=== PATIENT | female | born 1990 | race Caucasian/White ===

== ENCOUNTER 2021-04-11 11:58 | Emergency (ER) | payer BC ==
[2021-04-11 13:00] VITALS: PULSE 50
[2021-04-11] MEDS ORDERED: Sodium Chloride 0.9% 2.5 ML Syringe FLUSH PRN (13:22)
[2021-04-11] MEDS ORDERED: Sodium Chloride 0.9% 10 ML Syringe FLUSH PRN (13:22)
[2021-04-11] MEDS ORDERED: Sodium Chloride 0.9% 1,000 ML IV ONE (13:32)
[2021-04-11] MEDS ORDERED: Ondansetron 4 MG/2 ML SDV IVPUSH ONE (13:32)
[2021-04-11 14:00] LABS: BLOOD UREA NITROGEN,BUN 13 mg/dL (7.0-18.0); CARBON DIOXIDE,CO2 23.6 mmol/L (21.0-32.0); CHLORIDE,CL 106 mmol/L (98-107); GLUCOSE RANDOM 85 mg/dL (74-106); LIPASE 88 U/L (73-393); POTASSIUM,K 3.9 mmol/L (3.5-5.1); SODIUM,NA 139 mmol/L (136-145)
[2021-04-11] MEDS ORDERED: HYDROmorphone 1 MG/ML Syringe IVPUSH ONE (14:20)
[2021-04-11] MEDS ORDERED: Ketorolac 30 MG/ML SDV IVPUSH ONE (14:21)
--- NOTE | 2021-04-11 14:29 | US ---
INDICATION: Right upper quadrant pain, vomiting TECHNIQUE: Multiple grayscale sonographic images of the right upper quadrant the abdomen. COMPARISON: None FINDINGS: Liver: Normal parenchymal echotexture. No suspicious lesions. Common bile duct: Normal caliber measuring up to 2 mm. Gallbladder: Contains a 1.4 cm shadowing mobile stone. No wall thickening or pericholecystic fluid. Pancreas: Unremarkable visualized proximal pancreas. The distal pancreas is obscured. Right kidney: Measures 11 cm in length. Normal cortical thickness and parenchymal echotexture. No hydronephrosis. IMPRESSION: Cholelithiasis without evidence of cholecystitis. Otherwise unremarkable right upper quadrant. Dictated by Quinn Pate MD @ 04/11/2021 2:27:[address] Quinn Pate @ Apr 11 2021 2:27PM
--- NOTE | 2021-04-11 15:03 | EDM.PDOC ---
ED HPI GENERAL MEDICAL PROBLEM - General Chief Complaint: Abdominal Pain Stated Complaint: GALLBLADDER Time Seen by Provider: 04/11/21 12:01 Source of Information: Reports: Patient History Limitations: Reports: No Limitations - History of Present Illness INITIAL COMMENTS - FREE TEXT/NARRATIVE: HISTORY AND PHYSICAL: History of present illness: Patient is a 30-year-old female, history of prior symptomatic cholelithiasis, who presents emergency room today with concern of worsening right upper quadrant pain that has been ongoing for multiple months but worsening over the past s everal days. Patient states that she only gets pain and discomfort if she tries to eat and states that she has had gallbladder issues for quite some time but has "ignored "getting it removed. Patient states that she has also been told that she has gallstones and needs her gallbladder removed. Patient states that she has been dealing with the symptoms for quite some time and states that generally she would only get the symptoms when eating fatty foods to she has changed her diet over the past several months which has been helping. Patient states, however, progressively whenever she eats, she gets sharp right upper quadrant pain that radiates to the back and states that it does improve after some time but over the past 2 days has been more constant. Patient states that she feels hungry but every time she eats the pain returns so she talked with Dr. Mullins, general surgery, who instructed her to come to the ED for evaluation. Patient states she has not taken anything today for her symptoms. Patient states she has a history of bipolar disorder but denies any other health history. Patient denies fever, chills, chest pain, shortness of breath, or cough. Denies headache, neck stiff ness, change in vision, syncope, or near syncope. Denies vomiting, diarrhea, constipation, or dysuria. Has not noted any blood in urine or stool. Review of systems: As per history of present illness and below otherwise all systems reviewed and negative. Past medical history: As per history of present illness and as reviewed below otherwise noncontributory. Surgical history: As per history of present illness and as reviewed below otherwise noncontributory. Social history: See social history for further information Family history: As per history of present illness and as reviewed below otherwise noncontributory. Physical exam: General: Patient is alert, oriented, and in no acute distress. Patient sitting comfortably on exam table. Vitals stable and reviewed by me. HEENT: Atraumatic, normocephalic, pupils equal and reactive bilaterally, negative for conjunctival pallor or scleral icterus, mucous membranes moist, TMs normal bilaterally, throat clear, neck supple, nontender, trachea midline. No drooling or trismus noted. No meningeal signs. No hot potato voice noted. Lungs: Clear to auscultation, breath sounds equal bilaterally, chest nontender. Heart: S1S2, regular rate and rhythm without overt murmur Abdomen: Soft, nondistended, moderate RUQ tenderness without guarding, negative polk/rebound. Negative for masses or hepatosplenomegaly. Negative for costovertebral tenderness. Pelvis: Stable nontender. Genitourinary: Deferred. Rectal: Deferred. Skin: Intact, warm, dry. No lesions or rashes noted. Extremities: Atraumatic, negative for cords or calf pain. Neurovascular unremarkable. Neuro: Awake, alert, oriented. Cranial nerves II through XII unremarkable. Cerebellum unremarkable. Motor and sensory unremarkable throughout. Exam nonfocal. Notes: Patient is a 30-year-old female, history of prior cholelithiasis, who presents emergency room today with concern of right upper quadrant pain that has been ongoing for multiple months, worsening over the past several days. Upon arrival to the ED, patient is vitally stable and well-appearing on exam but does have right upper quadrant tenderness on exam. Will obtain basic lab work and obtain right upper quadrant ultrasound and reassess patient. CBC unremarkable. CMP mild derangements unremarkable. Lipase within normal limits. hCG is negative. Right upper quadrant ultrasound shows cholelithiasis without evidence of cholecystitis. Otherwise unremarkable right upper quadrant. Patient has personally been in contact today with general surgeon as she knows her personally, Dr. Mullins. Dr. Mullins in ED who has reviewed patients US image and labwork and has personally informed me she has established an appointment tomorrow at 1pm with patient in her clinic with plan to remove her gallbladder later this week/early next week. Upon reevaluation of patient, she has improvement of her pain and discomfort today with therapeutics given the emergency room. Strict return precautions thoroughly discussed with patient. Discussed importance for follow-up with Dr. Drake tomorrow as scheduled and her primary care provider. Voices understanding and is agreeable to plan of care. Denies any further questi ons or concerns at this time. Diagnostics: CBC, CMP, UA, lipase, right upper quadrant ultrasound Therapeutics: Normal saline, Zofran, Toradol, Dilaudid Prescription: [place] 5/325 (#10 tabs), Zofran Impression: Symptomatic cholelithiasis Plan: 1. Take medication as prescribed. Caution when using this medication as it does cause drowsiness and sedation. Do not operate any heavy equipment or machinery while taking this medication. 2. You can also alternate ibuprofen and Tylenol as directed for pain and discomfort. 3. Follow-up with Dr. Mullins, general surgery, tomorrow as scheduled at 1 PM at her clinic. The clinic information has been provided above for you for your reference. 3. Return to the ED as needed and as discussed. Definitive disposition and diagnosis as appropriate pending reevaluation and review of above. Left Upper Abdominal Pain Score (Numeric/FACES): 4 - Related Data Allergies Allergy/AdvReac Type Severity Reaction Status Date / Time No Known Allergies Allergy Verified 08/22/18 07:42 Home Meds: Home Meds Hydrocodone/Acetaminophen [HYDROcodone-Acetaminophen 5-325 MG] 1 each PO Q6H PRN #10 tab 04/11/21 [Rx] Ondansetron [Zofran ODT] 4 mg PO Q6H PRN #8 tab.dis 04/11/21 [Rx] Past Medical History HEENT History: Reports: None Cardiovascular History: Reports: None Respiratory History: Reports: None Gastrointestinal History: Reports: None Genitourinary History: Reports: None DRUGLESS DOCTOR History: Reports: None Musculoskeletal History: Reports: None Neurological History: Reports: None Psychiatric History: Reports: Bipolar Endocrine/Metabolic History: Reports: None Hematologic History: Reports: None Immunologic History: Reports: None Oncologic (Cancer) History: Reports: None Dermatologic History: Reports: None - Infectious Disease History Infectious Disease History: Reports: None - Past Surgical History Head Surgeries/Procedures: Reports: None HEENT Surgical History: Reports: None Cardiovascular Surgical History: Reports: None GI Surgical History: Reports: None Female Surgical History: Reports: None Endocrine Surgical History: Reports: None Neurological Surgical History: Reports: None Oncologic Surgical History: Reports: None Dermatological Surgical History: Reports: None Social & Family History - Family History Family Medical History: No Pertinent Family History HEENT: Reports: None Cardiac: Reports: None Respiratory: Reports: None GI: Reports: None : Reports: None OBGYN: Reports: None Musculoskeletal: Reports: None Neurological: Reports: None Psychiatric: Reports: None Endocrine/Metabolic: Reports: None Hematologic: Reports: None Immunologic: Reports: None Dermatologic: Reports: None Oncologic: Reports: None - Caffeine Use Caffeine Use: Reports: Energy Drinks - Recreational Drug Use Recreational Drug Use: No ED ROS GENERAL - Review of Systems Review Of Systems: Comprehensive ROS is negative, except as noted in HPI. ED EXAM, GENERAL - Physical Exam Exam: See Below (see dictation) Course - Vital Signs Last Recorded V/S: Last Vital Signs Temp 97.2 F 04/11/21 12:50 Pulse 50 L 04/11/21 15:16 Resp 17 04/11/21 15:16 BP 120/70 04/11/21 15:16 Pulse Ox 98 04/11/21 15:16 - Orders/Labs/Meds Orders: Active Orders 24 hr Category Date Time Status UA RFX RALF AND CULT IF INDIC [URIN] Stat Lab 04/11/21 13:22 Ordered Saline Lock Insert [OM.PC] Stat Oth 04/11/21 13:22 Ordered Labs: Laboratory Tests 04/11/21 04/11/21 04/11/21 Range/Units 12:54 12:54 12:54 WBC 8.96 (4.0-11.0) K/uL RBC 4.37 (4.30-5.90) M/uL Hgb 13.7 (12.0-16.0) g/dL Hct 39.6 (36.0-46.0) % MCV 90.6 (80.0-98.0) fL MCH 31.4 (27.0-32.0) pg MCHC 34.6 (31.0-37.0) g/dL RDW Std Deviation 44.4 (28.0-62.0) fl RDW Coeff of Shawn 14 (11.0-15.0) % Plt Count 209 (150-400) K/uL MPV 10.90 (7.40-12.00) fL Neut % (Auto) 57.1 (48.0-80.0) % Lymph % (Auto) 34.3 (16.0-40.0) % [place] % (Auto) 7.5 (0.0-15.0) % Eos % (Auto) 1.0 (0.0-7.0) % Baso % (Auto) 0.1 (0.0-1.5) % Neut # (Auto) 5.1 (1.4-5.7) K/uL Lymph # (Auto) 3.1 H (0.6-2.4) K/uL [place] # (Auto) 0.7 (0.0-0.8) K/uL Eos # (Auto) 0.1 (0.0-0.7) K/uL Baso # (Auto) 0.0 (0.0-0.1) K/uL Nucleated RBC % 0.0 /100WBC Nucleated RBCs # 0 K/uL Sodium 139 (136-145) mmol/L Potassium 3.9 (3.5-5.1) mmol/L Chloride 106 (98-107) mmol/L Carbon Dioxide 23.6 (21.0-32.0) mmol/L BUN 13 (7.0-18.0) mg/dL Creatinine 0.8 (0.6-1.0) mg/dL Est Cr Clr Drug Dosing 85.83 mL/min Estimated GFR (MDRD) > 60.0 ml/min Glucose 85 (74-106) mg/dL Calcium 8.2 L (8.5-10.1) mg/dL Total Bilirubin 0.3 (0.2-1.0) mg/dL AST 33 (15-37) IU/L ALT 49 (14-63) IU/L Alkaline Phosphatase 41 L (46-116) U/L Total Protein 6.8 (6.4-8.2) g/dL Albumin 3.6 (3.4-5.0) g/dL Globulin 3.2 (2.6-4.0) g/dL Albumin/Globulin Ratio 1.1 (0.9-1.6) Lipase 88 (73-393) U/L HCG, Qual NEGATIVE (NEG) Meds: Medications Discontinued Medications Generic Name Dose Route Start Last Admin Trade Name Freq PRN Reason Stop Dose Admin Hydromorphone HCl 1 mg 04/11/21 14:20 04/11/21 14:31 Hydromorphone 1 Mg/Ml Syringe IVPUSH 04/11/21 14:21 1 mg ONETIME ONE Administration Sodium Chloride 1,000 mls @ 999 mls/hr 04/11/21 13:32 04/11/21 13:45 Normal Saline IV 04/11/21 14:32 999 mls/hr STAT ONE Administration Ketorolac Tromethamine 30 mg 04/11/21 14:21 04/11/21 14:31 Ketorolac 30 Mg/Ml Sdv IVPUSH 04/11/21 14:22 30 mg ONETIME ONE Administration Ondansetron HCl 4 mg 04/11/21 13:32 04/11/21 13:45 Ondansetron 4 Mg/2 Ml Sdv IVPUSH 04/11/21 13:33 4 mg ONETIME ONE Administration Sodium Chloride 10 ml 04/11/21 13:22 04/11/21 13:45 Sodium Chloride 0.9% 10 Ml Syringe FLUSH 10 ml ASDIRECTED PRN Administration Keep Vein Open Sodium Chloride 2.5 ml 04/11/21 13:22 04/11/21 13:45 Sodium Chloride 0.9% 2.5 Ml Syringe FLUSH 2.5 ml ASDIRECTED PRN Administration Keep Vein Open Departure - Departure Time of Disposition: 15:02 Disposition: Home, Self-Care 01 Clinical Impression: Symptomatic cholelithiasis - Discharge Information Prescriptions: Hydrocodone/Acetaminophen [HYDROcodone-Acetaminophen 5-325 MG] 1 each PO Q6H PRN #10 tab PRN Reason: Pain (Severe 7-10) Ondansetron [Zofran ODT] 4 mg PO Q6H PRN #8 tab.dis PRN Reason: Nausea/Vomiting Instructions: Cholelithiasis, [id number] Referrals: Kary Mullins MD [Physician] - 1 Day (Please see Dr. Mullins tomorrow at 1pm ) PCP,None [Primary Care Provider] - Forms: ED Department Discharge Additional Instructions: The following information is given to patients seen in the emergency department who are being discharged to home. This information is to outline your options for follow-up care. We provide all patients seen in our emergency department with a follow-up referral. The need for follow-up, as well as the timing and circumstances, are variable depending upon the specifics of your emergency department visit. If you don't have a primary care physician on staff, we will provide you with a referral. We always advise you to contact your personal physician following an emergency department visit to inform them of the circumstance of the visit and for follow-up with them and/or the need for any referrals to a consulting specialist. The emergency department will also refer you to a specialist when appropriate. This referral assures that you have the opportunity for follow-up care with a specialist. All of these measure are taken in an effort to provide you with optimal care, which includes your follow-up. Under all circumstances we always encourage you to contact your private physician who remains a resource for coordinating your care. When calling for follow-up care, please make the office aware that this follow-up is from your recent emergency room visit. If for any reason you are refused follow-up, please contact the [facility] Emergency Department at and asked to speak to the emergency department charge nurse. [facility] [address] [place] [id number] [address] [facility] - General Surgery, Dr. Mullins Professional Building [address] [place] [address], [address] [place] [address] 1. Take medication as prescribed. Caution when using this medication as it does cause drowsiness and sedation. Do not operate any heavy equipment or machinery while taking this medication. 2. You can also alternate ibuprofen and Tylenol as directed for pain and discomfort. 3. Follow-up with Dr. Mullins, general surgery, tomorrow as scheduled at 1 PM at her clinic. The clinic information has been provided above for you for your reference. 3. Return to the ED as needed and as discussed. Sepsis Event Note (ED) - Focused Exam Vital Signs: Vital Signs Temp Pulse Resp BP Pulse Ox 04/11/21 15:16 50 L 17 120/70 98 04/11/21 12:50 97.2 F 50 L 19 126/67 98 - My Orders Last 24 Hours: My Active Orders 08/12/21 13:22 UA RFX RALF AND CULT IF INDIC [URIN] Stat Saline Lock Insert [OM.PC] Stat - Assessment/Plan Last 24 Hours: My Active Orders 04/11/21 13:22 UA RFX RALF AND CULT IF INDIC [URIN] Stat Saline Lock Insert [OM.PC] Stat
[2021-04-11 15:17] VITALS: BP 120/70
== END 2021-04-11 15:17 | disposition home or self-care (01) ==
LOC: MW.ED 11:58
DX: K80.20 Calculus of gallbladder without cholecystitis without obstruction (principal)
CPT/HCPCS: 76705; 80053; 83690; 84703; 85025; 96374; 96375; 99284; J1170; J1885; J2405; J7030

== ENCOUNTER 2021-04-16 11:00 | Day surgery (SDC) | payer BC ==
[~2021-04-16 11:00] MED LIST: Lactated Ringers 1,000 ML IV SCH; Sodium Chloride 0.9% 10 ML SDV IV PRN; Sodium Chloride 0.9% 10 ML Syringe FLUSH PRN; Sodium Chloride 0.9% 2.5 ML Syringe FLUSH PRN; ceFAZolin 2 GM in Premix Bag 1 BAG IV ONE
--- NOTE | 2021-04-16 11:34 | PCM.PREANE ---
Preanesthetic Assessment - Procedure Proposed Procedure: Lap Brenda - Anesthesia/Transfusion/Family Hx Anesthesia History: Prior Anesthesia Without Reaction Transfusion History: No Prior Transfusion(s) - Review of Systems General: No Symptoms Pulmonary: No Symptoms (Vapes) Cardiovascular: No Symptoms Gastrointestinal: No Symptoms Neurological: No Symptoms Other: Reports: None - Physical Assessment NPO Status Date: 04/15/21 NPO Status Time: 23:00 Height: 5 ft 3 in Weight: 111.584 kg (Morbid Obesity) ASA Class: 3 Mental Status: Alert & Oriented x3 Airway Class: Mallampati = 2 Dentition: Reports: Normal Dentition Thyro-Mental Finger Breadths: 3 Mouth Opening Finger Breadths: 3 ROM/Head Extension: Full Lungs: Clear to Auscultation, Normal Respiratory Effort Cardiovascular: Regular Rate, Regular Rhythm - Lab Values: Laboratory Last Values Urine HCG, Qual NEGATIVE (NEGATIVE) 04/16/21 11:09 - Allergies Allergies/Adverse Reactions: Allergies Allergy/AdvReac Type Severity Reaction Status Date / Time No Known Allergies Allergy Verified 04/15/21 08:25 - Acknowledgements Anesthesia Type Planned: General Anesthesia Pt an Appropriate Candidate for the Planned Anesthesia: Yes Alternatives and Risks of Anesthesia Discussed w Pt/Guardian: Yes Pt/Guardian Understands and Agrees with Anesthesia Plan: Yes PreAnesthesia Questionnaire HEENT History: Reports: None Cardiovascular History: Reports: None Respiratory History: Reports: None Gastrointestinal History: Reports: None Genitourinary History: Reports: None DESULFURIZER HAND History: Reports: , Other (See Below) Other OB/BYN History: ETOP Musculoskeletal History: Reports: None Neurological History: Reports: None Psychiatric History: Reports: Bipolar Endocrine/Metabolic History: Reports: Obesity/BMI 30+ Hematologic History: Reports: None Immunologic History: Reports: None Oncologic (Cancer) History: Reports: None Dermatologic History: Reports: None - Infectious Disease History Infectious Disease History: Reports: None - Past Surgical History Head Surgeries/Procedures: Reports: None HEENT Surgical History: Reports: Adenoidectomy, Myringotomy w Tube(s), Tonsillectomy Cardiovascular Surgical History: Reports: None Respiratory Surgical History: Reports: None GI Surgical History: Reports: None Female Surgical History: Reports: None Endocrine Surgical History: Reports: None Neurological Surgical History: Reports: None Musculoskeletal Surgical History: Reports: Other (See Below) Other Musculoskeletal Surgeries/Procedures:: right hand reconstruction due to injury Oncologic Surgical History: Reports: None Dermatological Surgical History: Reports: None - SUBSTANCE USE Tobacco Use Status *Q: Light Tobacco User Tobacco Use Within Last Twelve Months: Vaping - HOME MEDS Home Medications: Home Meds Hydrocodone/Acetaminophen [HYDROcodone-Acetaminophen 5-325 MG] 1 each PO Q6H PRN #10 tab 04/11/21 [Rx] Ondansetron [Zofran ODT] 4 mg PO Q6H PRN #8 tab.dis 04/11/21 [Rx] Divalproex Sodium [Depakote] 1,000 mg PO BEDTIME 04/15/21 [History] Divalproex Sodium [Depakote] 500 mg PO ACBREAKFAST 04/15/21 [History] Scopolamine [Transderm-Scop] 1 patch TRDERM ONETIME 04/15/21 [History] Topiramate [Topamax] 1.5 tab PO BEDTIME 04/15/21 [History] hydrOXYzine pamoate [Vistaril] 50 mg PO BEDTIME 04/15/21 [History] levonorgestreL [Mirena] 1 device VAG ONETIME 04/15/21 [History] - CURRENT (IN HOUSE) MEDS Current Meds: Current Medications Lactated Ringer's (Ringers, Lactated) 1,000 mls @ 125 mls/hr IV ASDIRECTED EKATERINA Sodium Chloride (Sodium Chloride 0.9% 2.5 Ml Syringe) 2.5 ml FLUSH ASDIRECTED PRN PRN Reason: Keep Vein Open Sodium Chloride (Sodium Chloride 0.9% 10 Ml Sdv) 10 ml IV ASDIRECTED PRN PRN Reason: IV Use Sodium Chloride (Sodium Chloride 0.9% 10 Ml Syringe) 10 ml FLUSH ASDIRECTED PRN PRN Reason: Keep Vein Open Discontinued Medications Cefazolin Sodium/Dextrose 2 gm (/ Premix) 50 mls @ 100 mls/hr IV ONETIME ONE Stop: 04/15/21 13:20
[2021-04-16] MEDS ORDERED: Scopolamine 1.5 MG Transdermal Patch ONE (11:39)
[2021-04-16] MEDS ORDERED: Albuterol 0.083% 2.5 MG/3 ML Neb Soln NEB PRN (11:42)
[2021-04-16] MEDS ORDERED: Ondansetron 4 MG/2 ML SDV IVPUSH PRN (11:42)
[2021-04-16] MEDS ORDERED: Morphine 2 MG/ML SYRINGE IVPUSH PRN (11:42)
[2021-04-16] MEDS ORDERED: Metoclopramide 10 MG/2 ML SDV IVPUSH PRN (11:42)
[2021-04-16] MEDS ORDERED: Naloxone 0.4 MG/ML Syringe IVPUSH PRN (11:42)
[2021-04-16] MEDS ORDERED: HYDROmorphone 1 MG/ML Syringe IVPUSH PRN (11:42)
[2021-04-16] MEDS ORDERED: Dexamethasone 4 MG/ML 5 ML MDV ONE (12:50)
[2021-04-16] MEDS ORDERED: Ondansetron 4 MG/2 ML SDV ONE (12:50)
[2021-04-16] MEDS ORDERED: Lidocaine 2% 100 MG/5 ML Syringe ONE (12:50)
[2021-04-16] MEDS ORDERED: Sugammadex Sodium 200 MG/2 ML VIAL ONE (12:50)
[2021-04-16] MEDS ORDERED: Propofol 200 MG/20 ML SDV ONE (12:50)
[2021-04-16] MEDS ORDERED: Rocuronium Bromide 50 MG/5 ML Syringe ONE ×2 (12:50→13:52)
[2021-04-16] MEDS ORDERED: Midazolam 1 MG/ML 2 ML SDV ONE (12:50)
[2021-04-16] MEDS ORDERED: fentaNYL 100 MCG/2 ML SDV ONE (12:50)
[2021-04-16] MEDS ORDERED: Bupivacaine 0.5% 30 ML SDV ONE (12:58)
[2021-04-16] MEDS ORDERED: Octyl 2-Cyanoacrylate 1 Tube ONE (12:58)
[2021-04-16] MEDS ORDERED: Glycopyrrolate 0.2 MG/ML SDV ONE (13:29)
[2021-04-16] MEDS ORDERED: ePHEDrine 50 MG/ML SDV ONE (13:35)
[2021-04-16] MEDS ORDERED: Sodium Chloride 0.9% 20 ML ONE (13:35)
[2021-04-16] MEDS ORDERED: HYDROmorphone 2 MG/ML Syringe ONE (13:49)
[2021-04-16] MEDS ORDERED: Ketorolac 30 MG/ML SDV ONE (14:33)
[2021-04-16] MEDS ORDERED: Acetaminophen/oxyCODONE 325-5 MG Tab PO PRN (15:14)
--- NOTE | 2021-04-16 15:16 | PCM.OPNOTE ---
- General Post-Op/Procedure Note Date of Surgery/Procedure: 04/16/21 Operative Procedure(s): Laparoscopic cholecystectomy Findings: Gallbladder containing large stone. Pre Op Diagnosis: Symptomatic cholelithiasis Post-Op Diagnosis: same Anesthesia Technique: General ET Tube Primary Surgeon: Kary Mullins Fluid Replacement, Intraop: 1,300 Output, Urine Amount: 750 EBL in mLs: 10 Condition: Good Free Text/Narrative:: Intake & Output 04/16/21 04/16/21 04/16/21 06:59 14:59 22:59 Output Total 750 Balance -750
--- NOTE | 2021-04-16 15:27 | PCM.POSTAN ---
POST ANESTHESIA ASSESSMENT - MENTAL STATUS Mental Status: Somnolent - VITAL SIGNS Vital Signs: Last Vital Signs Temp 97.7 F 04/16/21 11:42 Pulse 52 L 04/16/21 11:42 Resp 15 04/16/21 11:42 BP 116/61 04/16/21 11:42 Pulse Ox 97 04/16/21 11:42 - RESPIRATORY Respiratory Status: Respiratory Rate WNL, Airway Patent, O2 Saturation Stable - CARDIOVASCULAR CV Status: Pulse Rate WNL, Blood Pressure Stable - GASTROINTESTINAL GI Status: No Symptoms - PAIN Free Text/Narrative:: Resting comfortably - POST OP HYDRATION Hydration Status: Adequate & Stable
--- NOTE | 2021-04-16 15:41 | PCM48HPAN ---
Post Anesthesia Note - EVALUATION WITHIN 48HRS OF ANESTHETIC Vital Signs in Normal Range: Yes Patient Participated in Evaluation: Yes Respiratory Function Stable: Yes Airway Patent: Yes Cardiovascular Function Stable: Yes Hydration Status Stable: Yes Pain Control Satisfactory: Yes Nausea and Vomiting Control Satisfactory: Yes Mental Status Recovered: Yes Vital Signs: Last Vital Signs Temp 98.1 F 04/16/21 15:19 Pulse 72 04/16/21 15:29 Resp 18 04/16/21 15:29 BP 119/95 H 04/16/21 15:29 Pulse Ox 100 04/16/21 15:29 - COMMENTS/OBSERVATIONS Free Text/Narrative:: Pt doing well post-op. VSS. No apparent anesthetic complications. Dr. Acosta Patel
[2021-04-16] MEDS: fentaNYL 100 MCG/2 ML SDV IVPUSH PRN ×2 (15:46→15:56)
--- NOTE | 2021-04-16 17:00 | OR ---
SURGEON: KARY MULLINS MD DATE OF PROCEDURE: 04/16/2021 PREOPERATIVE DIAGNOSIS: Symptomatic cholelithiasis. POSTOPERATIVE DIAGNOSIS: Symptomatic cholelithiasis. PROCEDURE PERFORMED: Laparoscopic cholecystectomy. PRIMARY SURGEON: Kary Mullins MD ANESTHESIA: General endotracheal anesthesia. FLUIDS: 1300 mL of crystalloid. ESTIMATED BLOOD LOSS: 10 mL. URINE OUTPUT: 750 mL. FINDINGS: Gallbladder containing a large stone. COMPLICATIONS: None. INDICATIONS: The patient is a 30-year-old female who presented last week to the emergency room with right upper quadrant abdominal pain. Her lab work was normal, but her ultrasound showed a large stone in the neck of her gallbladder. The patient met with me in clinic this week, and the decision was made to proceed with a laparoscopic, possible open cholecystectomy for symptomatic cholelithiasis. The patient and I discussed the procedure, expected perioperative course as well as the risks. She verbalized understanding and wishes to proceed. PROCEDURE IN DETAIL: The patient was brought into the OR and placed on the OR table in supine position. A time-out was completed verifying the patient's name, age, date of , allergies, and procedure to be performed. General endotracheal anesthesia was induced. The left arm was tucked to the patient's side, and a Livingston catheter placed. The abdomen was prepped and draped in usual standard fashion. I anesthetized the supraumbilical area with 0.5% Marcaine plain. An 11 blade was used to make an incision in this area. I then used cautery to dissect down to the level of subcutaneous fat. Using a combination of cautery and blunt dissection, I dissected down to the fascia. The fascia was elevated with Kochers and incised sharply with curved Plata scissors. The peritoneum was then grasped with hemostats and incised sharply. Entry into the abdomen was palpated digitally. Stay sutures were placed on either side of the fascia using 0 Vicryl suture. A 12 mm Jacky trocar was inserted in the abdomen, and the abdomen was insufflated. I inserted a 5 mm, 30-degree scope into the abdomen and inspected the area underneath my initial trocar placement. No damage to surrounding structures was noted. The patient was then placed into steep reverse Trendelenburg position and airplaned slightly to the left. 5 mm trocars were placed in the following locations under direct visualization; one in the epigastric area, one in the right flank, and one 2 fingerbreadths below the right subcostal margin in the midclavicular line. The dome of the gallbladder was grasped with an atraumatic grasper and elevated anteriorly. There were no adhesions from the surrounding structures to the gallbladder. I grasped the infundibulum. I began to take down the tissue around the proximal half of the gallbladder. Using a combination of blunt dissection and hook cautery, I was able to identify the node of Calot. I then swept away all the attachments around the cystic duct and cystic artery. Indocyanine dye was used to identify the cystic duct, and a photograph of this was taken. I continued my dissection of the cystic plate. I identified my cystic artery just behind the lymph node. I continued my dissection. I noted another small artery just up the cystic plate from this. I carried my dissection of the cystic plate senior care. Once I had cleared away all the structures, a bolus of indocyanine was given. I could clearly see the pulsatile dye going through the main artery and a small amount of dye going through the small branch, which was up along the cystic plate. The decision was made to doubly clip and ligate the main artery as well as the small branch off at the side. I doubly clipped and ligated both the cystic duct, the cystic artery, and the small branch. I then began my dissection up the cystic plate from proximal to distal. Towards the distal end of the cystic plate, I came across another vascular-appearing structure. This was doubly clipped. However, as I was trying to dissect around the vessel to get a clear picture of it, it tore between my clips. There was a small amount of bloody oozing from this area. A clip was placed below it, and the bleeding stopped. The remainder of the attachments of the gallbladder were taken down using electrocautery. The gallbladder was then placed in an Endo Catch bag and removed through the 12 mm port site. I inspected my operative field. I irrigated copiously with normal saline and suctioned this out. The area appeared to be hemostatic, and there was no evidence of bile leakage. The 5 mm trocars were then removed under direct visualization, and the abdomen allowed to desufflate. I removed my 12 mm trocar. I closed the fascia at the supraumbilical port site with interrupted 0 Vicryl sutures. The subcutaneous fat layer was closed with layers of 3-0 Vicryl suture and the skin was closed with a running 4-0 Monocryl stitch. The 5 mm trocar sites were closed with interrupted 4-0 Monocryl sutures. Dermabond and sterile dressings were applied. The patient tolerated the procedure well and was extubated and taken to PACU in stable condition. All counts were complete and correct at the end of the case. LANI / WILFREDO /[id number] MTDD
[2021-04-16 17:05] VITALS: BP 116/64; PULSE 57
== END 2021-04-16 17:14 | disposition home or self-care (01) ==
LOC: MW.SDS 11:00
PROVIDERS: ATTEND Surgery
DX: K80.10 Calculus of gallbladder with chronic cholecystitis without obstruction (principal); E66.9 Obesity, unspecified; Z68.41 Body mass index [BMI] 40.0-44.9, adult; Z87.891 Personal history of nicotine dependence
CPT/HCPCS: 47562; 81025; 88304; A9270; J0131; J0690; J1100; J1170; J1885; J2250; J2405; J2704; J3010; J3490; J7120; 00790

== ENCOUNTER 2022-09-25 14:53 | Emergency (ER) | payer BC, OTHER, SELFPAY ==
[2022-09-25 17:13] LABS: CARBON DIOXIDE,CO2 25.8 mmol/L (21.0-32.0); POTASSIUM,K 3.7 mmol/L (3.5-5.1)
[2022-09-25 19:30] VITALS: BP 142/89; PULSE 70
== END 2022-09-25 19:30 | disposition home or self-care (01) ==
LOC: MW.ED 14:53
DX: R51.9 Headache, unspecified (principal); Z91.040 Latex allergy status
CPT/HCPCS: 36415; 70450; 70450-26; 80053; 81025; 83735; 84484; 85025; 85610; 99283; 99284